=== PATIENT | female | born 1975 ===

== ENCOUNTER 2017-01-14 16:50 | Emergency (ER) | payer BC, MEDICAID ==
[2017-01-14 17:46] VITALS: TEMP 98.6; O2SAT 99
--- NOTE | 2017-01-14 18:24 | ED PDOC ---
Arrival/HPI - General Chief Complaint: Lower Extremity Problem/Injury Time Seen by Provider: 01/14/17 18:03 Historian: Patient - History of Present Illness Narrative History of Present Illness (Text): 01/14/17 18:16 41yr old female presents today with 2 day history of left leg swelling. pt states she noticed left ankle was swollen. pt denies any recent trauma or injury. she is c/o tightness to the left ankle with swelling over the lateral aspect of the ankle. no fever/chills. denies calf pain. pt states she rested, elevated, applied ice to ankle without improvement. pt denies cp or sob. no vomiting/diarrhea. pt denies numbness, weakness, tingling in the extremity. no other complaints. Symptom Onset: Gradual Symptom Course: Unchanged Quality: Pressure Severity Level: 2 Past Medical History - Provider Review Nursing Documentation Reviewed: Yes - Travel History Have you recently traveled outside [place] w/in the past 3 mons?: No - Infectious Disease Hx of Infectious Diseases: None - Tetanus Immunization Tetanus Immunization: Unknown - Psychiatric Hx Psychophysiologic Disorder: No Hx Substance Use: No - Surgical History Hx Hysterectomy: Yes Family/Social History - Physician Review Nursing Documentation Reviewed: Yes Family/Social History: Unknown Family HX Smoking Status: Never Smoked Hx Alcohol Use: No Hx Substance Use: No Allergies/Home Meds Allergies/Adverse Reactions: Allergies iodine Allergy (Verified 01/14/17 17:37) RASH Review of Systems - Review of Systems Constitutional: absent: Fatigue, Fevers Respiratory: absent: SOB, Cough Cardiovascular: absent: Chest Pain, Palpitations Gastrointestinal: absent: Abdominal Pain, Nausea, Vomiting Genitourinary Female: absent: Dysuria, Frequency, Hematuria Musculoskeletal: Arthralgias, Joint Swelling. absent: Back Pain, Neck Pain Skin: absent: Rash, Pruritis Neurological: absent: Headache, Dizziness Psychiatric: absent: Anxiety, Depression, Suicidal Ideation Physical Exam Vital Signs Reviewed: Yes Vital Signs Temp Pulse Resp BP Pulse Ox 01/14/17 20:27 58 L 18 126/71 99 01/14/17 17:42 98.6 F 74 16 113/81 99 Temperature: Afebrile Blood Pressure: Normal Pulse: Regular Respiratory Rate: Normal Appearance: Positive for: Well-Appearing, Non-Toxic, Comfortable Pain Distress: None Mental Status: Positive for: Alert and Oriented X 3 - Systems Exam Head: Present: Atraumatic Mouth: Present: Moist Mucous Membranes Neck: Present: Normal Range of Motion Respiratory/Chest: Present: Clear to Auscultation, Good Air Exchange. No: Respiratory Distress, Accessory Muscle Use Cardiovascular: Present: Regular Rate and Rhythm, Normal S1, S2. No: Murmurs Back: Present: Normal Inspection Upper Extremity: Present: Normal Inspection Lower Extremity: Present: NORMAL PULSES, Normal ROM, Tenderness (left ankle; + minimal tenderness to lateral aspect of ankle; + edema over lateral malleolus; no erythema; no warmth; full rom of ankle; sensation and distal pulses intact; no calf tenderness. ), Swelling, Neurovascularly Intact, Capillary Refill < 2 s. No: CALF TENDERNESS, Erythema, Deformity, Temperature Abnormalties Neurological: Present: GCS=15, Speech Normal Skin: Present: Warm, Dry, Normal Color. No: Rashes Psychiatric: Present: Alert, Oriented x 3 Medical Decision Making ED Course and Treatment: 01/14/17 18:26 Patient nontoxic well-appearing in no distress with stable vital signs X-rays of the left ankle: no fracture venous duplex of left lower leg; no dvt verbal report from [email or web address]. Patient given aircast; pt does not want crutches. I discussed all results in depth with the patient advised to followup with the orthopedist within the next 2 days. Advised return if symptoms worsen persist or new symptoms develop. Patient verbalizes understanding of discharge instructions and need for immediate followup. Impression: Ankle pain, ankle swelling Motrin every 6 hours as needed for pain Rest, ice, compression, elevation Followup with the orthopedist within the next 2 days Followup with primary care physician within the next 2 days Return if symptoms worsen persist or if new symptoms develop 01/14/17 20:21 - RAD Interpretation Radiology Orders: 01/14/17 18:08 ANKLE LEFT 3 VIEWS ROUTINE [RAD] Stat DUPLEX LOWER EXTRM VEIN LEFT [US] Stat - Medication Orders Current Medication Orders: Discontinued Medications Ibuprofen (Motrin Tab) 600 mg PO STAT STA Stop: 01/14/17 20:23 Last Admin: 01/14/17 20:46 Dose: 600 mg Disposition/Present on Arrival - Present on Arrival Any Indicators Present on Arrival: No History of DVT/PE: No History of Uncontrolled Diabetes: No Urinary Catheter: No History of Decub. Ulcer: No History Surgical Site Infection Following: None - Disposition Have Diagnosis and Disposition been Completed?: Yes Diagnosis: Ankle pain, Ankle swelling Disposition: HOME/ ROUTINE Disposition Time: 20:23 Patient Plan: Discharge Condition: GOOD Discharge Instructions (ExitCare): Swollen Ankle Joint (ED) Additional Instructions: Motrin every 6 hours as needed for pain Rest, ice, compression, elevation Followup with the orthopedist within the next 2 days Followup with primary care physician within the next 2 days Return if symptoms worsen persist or if new symptoms develop Prescriptions: Ibuprofen [Motrin] 600 mg PO Q6H PRN #20 tab PRN Reason: pain/fever reduction Referrals: Eduar Suarez DO [Staff Provider] - Follow up with primary Jyoti Ruff MD [Staff Provider] - Follow up with primary Forms: WORK NOTE
[2017-01-14 20:28] VITALS: BP 126/71; PULSE 58; RESP 18
--- NOTE | 2017-01-15 10:14 | RAD ---
PROCEDURE: Left Ankle Radiographs. HISTORY: ankle pain/swelling COMPARISON: None FINDINGS: BONES: Normal. No fracture. JOINTS: Normal. No osteoarthritis. Ankle mortise maintained. Talar dome intact SOFT TISSUES: Normal. OTHER FINDINGS: None. IMPRESSION: Normal left ankle radiographs.
--- NOTE | 2017-01-15 16:09 | US ---
PROCEDURE: Left lower extremity venous US HISTORY: Leg pain and swelling. Evaluate for DVT. PHYSICIAN(S): Jake David MD. TECHNIQUE: Duplex sonography and color-flow Doppler with graded compression were used to evaluate the deep venous system of the left lower extremity. FINDINGS: The visualized deep venous system of the left lower extremity is sonographically normal and compressible. Normal wave forms and augmentation are seen. There is no sonographic evidence for deep venous thrombosis in the visualized segments of the left lower extremity. IMPRESSION: 1. No sonographic evidence for deep venous thrombosis in the visualized segments of the left lower extremity.
== END 2017-01-14 20:46 | disposition home or self-care (01) ==
LOC: ED 16:50
DX: M25.572 Pain in left ankle and joints of left foot (principal); M79.89 Other specified soft tissue disorders